=== PATIENT | female | born 1945 | race Native Hawaiian/Other Pacific Islander ===

== ENCOUNTER 2023-04-22 15:35 | Outpatient (CLI) | payer OTHER ==
[2023-04-22 16:11] LABS: PLATELET COUNT 314 K/uL (152-353); POTASSIUM 3.2 mmol/L (3.6-5.2)
== END 2023-04-22 18:59 | disposition home or self-care (01) ==
LOC: LAB 15:35
PROVIDERS: ATTEND Internal Medicine Infectious Disease
DX: T81.31XA Disruption of external operation (surgical) wound, not elsewhere classified, initial encounter (principal)
CPT/HCPCS: 80053; 80202; 85027; 85652; 86140